=== PATIENT | male | born 1945 | race Caucasian/White ===

== ENCOUNTER → 2020-05-18 | Outpatient (CLI) | payer MEDICARE ==
[~2020-05-18] VITALS: Ht 175.3 cm; Wt 91.7 kg
[~2020-05-18] MED LIST: ADVIL200 MG PO; B-121000 MCG PO; FLOMAX 0.40.4 MG/CAP PO; LEVAQUIN 750MG750 M1 PO; NO HOME MEDICATIONS; PHARMASSURE ZIN50 MG PO; PREDNISONE10 MG PO; PROSCAR 5MG5 MG PO; VITAMIN D31000 I1 PO; VITAMINC1000TA PO; ZOCOR 10MG10 MG PO
[2020-05-18 06:23] VITALS: BP 154/96; PULSE 70
[2020-05-18 08:15] VITALS: BP 154/95; PULSE 69
== END ==
LOC: COL.RAD 06:00
DX: M54.12 Radiculopathy, cervical region (principal); M50.30 Other cervical disc degeneration, unspecified cervical region
CPT/HCPCS: J1100

== ENCOUNTER → 2020-06-15 | Outpatient (CLI) | payer MEDICARE, OTHER ==
[~2020-06-15] VITALS: Ht 175.3 cm; Wt 92.5 kg
[2020-06-15 07:22] VITALS: BP 166/104; PULSE 86
[2020-06-15 07:55] VITALS: BP 156/103; PULSE 87
== END ==
LOC: COL.RAD 06:54
DX: M50.120 Mid-cervical disc disorder, unspecified level (principal)
CPT/HCPCS: J1100

== ENCOUNTER → 2020-09-09 | Outpatient (CLI) | payer MEDICARE, OTHER | LOC: COL.RAD 07:36 | DX: M75.101 Unspecified rotator cuff tear or rupture of right shoulder, not specified as traumatic (principal); M67.813 Other specified disorders of tendon, right shoulder; M75.51 Bursitis of right shoulder ==